=== PATIENT | male | born 1980 | race African-American/Black ===

== ENCOUNTER 2020-11-07 17:32 | Emergency (ER) | payer SELFPAY ==
[2020-11-07] MEDS ORDERED: predniSONE 20 MG TAB ONE (18:32)
[2020-11-07] MEDS ORDERED: Ketorolac Tromethamine 60 MG/2 ML VIAL ONE (18:32)
== END 2020-11-07 19:00 | disposition home or self-care (01) ==
LOC: MADERS 17:32
DX: M10.9 Gout, unspecified (principal); E78.5 Hyperlipidemia, unspecified; E78.00 Pure hypercholesterolemia, unspecified; I10 Essential (primary) hypertension
CPT/HCPCS: 96372; 99283; J1885; J7512

== ENCOUNTER 2021-06-17 16:43 | Emergency (ER) | payer SELFPAY ==
[2021-06-17] MEDS ORDERED: Ketorolac Tromethamine 30 MG/ML VIAL ONE (17:52)
== END 2021-06-17 18:24 | disposition home or self-care (01) ==
LOC: MADERS 16:43
DX: G89.29 Other chronic pain (principal); M54.50 Low back pain, unspecified; E78.5 Hyperlipidemia, unspecified; I10 Essential (primary) hypertension; Z79.899 Other long term (current) drug therapy
CPT/HCPCS: 96374; J1885

== ENCOUNTER 2022-05-11 18:15 | Emergency (ER) | payer OTHER ==
[2022-05-11] MEDS ORDERED: Lidocaine 1% (PF) 30 ML VIAL ONE (18:42)
[2022-05-11] MEDS ORDERED: Lidocaine 1% w/Epinephrine 1:100K 30 ML VIAL ONE (18:50)
[2022-05-11] MEDS ORDERED: Cephalexin 500 MG CAP ONE (19:09)
[2022-05-11] MEDS ORDERED: Doxycycline 100 MG CAP ONE (19:10)
== END 2022-05-11 19:25 | disposition home or self-care (01) ==
LOC: MADERS 18:15
DX: L02.212 Cutaneous abscess of back [any part, except buttock and flank] (principal); I10 Essential (primary) hypertension; E11.9 Type 2 diabetes mellitus without complications; Z79.82 Long term (current) use of aspirin; Z79.899 Other long term (current) drug therapy
CPT/HCPCS: 10060; 87070; 87205; J2001